=== PATIENT | female | born 1990 | race Caucasian/White ===

== ENCOUNTER 2023-10-03 22:53 | Emergency (ER) | payer OTHER ==
[~2023-10-03] VITALS: Ht 167.6 cm; Wt 95.5 kg
[2023-10-03 23:02] VITALS: BP 137/83; PULSE 85; RESP 16; TEMP 98.2
[2023-10-05 04:06] LABS: HEPATITIS A ANTIBODY IGM Negative (Negative); HEPATITIS B CORE IGM Negative (Negative); HEPATITIS C AB (EIA) Non Reactive (Non Reactive)
== END 2023-10-04 05:59 | disposition home or self-care (01) ==
LOC: EMS 22:54 → EDSEX 22:54 → EMS 10-04 05:59
DX: Z77.21 Contact with and (suspected) exposure to potentially hazardous body fluids (principal); Z88.1 Allergy status to other antibiotic agents
CPT/HCPCS: 80074; 99283

== ENCOUNTER 2024-11-05 11:09 | Inpatient (IN) | payer OTHER, MEDICAID ==
[~2024-11-05] VITALS: Ht 162.6 cm; Wt 98.3 kg
[2024-11-05 11:20] LABS: COVID AG,FIA SOURCE NASAL SWAB
[2024-11-05 11:30] LABS: BASOPHILS % (AUTO) 0.5 % (0.0-2.0); HEMATOCRIT 38.8 % (36-46); HEMOGLOBIN 13.4 g/dL (12.0-16.0); LYMPHOCYTES # (AUTO) 1.5 K/uL (1.0-4.8); LYMPHOCYTES % (AUTO) 14.6 % (22.0-44.0); MEAN CORPUSCULAR HEMOGLOBIN 28.6 pg (26.0-34.0); MEAN CORPUSCULAR HGB CONC 34.4 G/dL (31.0-37.0); MEAN CORPUSCULAR VOLUME 83 fL (80-100); MONOCYTES # (AUTO) 0.7 K/uL (0.1-1.0); MONOCYTES % (AUTO) 6.5 % (2.0-9.0); NEUTROPHILS # (AUTO) 7.9 K/uL (1.8-7.7); NEUTROPHILS % (AUTO) 75.4 % (40.0-70.0); PLATELET COUNT (AUTO) 414 K/uL (150-450); RED BLOOD CELL COUNT(AUTO) 4.67 MIL/uL (4.00-5.20); RED CELL DISTRIBUTION WIDTH 14.5 % (11.5-14.5); WHITE BLOOD COUNT (AUTO) 10.5 K/uL (4.5-11.0)
[2024-11-05 11:38] LABS: ANION GAP 8 mmol/L (8-16); CALCIUM, TOTAL 9.1 mg/dL (8.8-10.5); CARBON DIOXIDE 26 mmol/L (22-29); CHLORIDE 104 mmol/L (98-107); CREATININE 0.66 mg/dL (0.60-1.30); GLOMERULAR FILTR. RATE CALC > 60 mL/min (>60); GLUCOSE,RANDOM 94 mg/dL (70-110); POTASSIUM 3.2 mmol/L (3.5-5.1); SODIUM SERUM 138 mmol/L (136-145); UREA NITROGEN, BLOOD 6 mg/dL (7-18)
[2024-11-05 11:48] LABS: TROPONIN I-HIGH SENSITIVITY Less Than 4 ng/L (<51)
[2024-11-05 11:56] LABS: INFLUENZA TYPE A NEGATIVE FOR TYPE A (NEGATIVE); INFLUENZA TYPE B NEGATIVE FOR TYPE B (NEGATIVE); SARS-COV2 (COVID) ANTIGEN,FIA Negative (Negative)
[2024-11-05 13:43] VITALS: PULSE 89; RESP 18; O2SAT 92
[2024-11-05] MEDS: IPRATROPIUM BROMIDE 0.5 MG/2.5 ML NEB SOLUTION NEB ONE (13:43)
[2024-11-05] MEDS: ALBUTEROL SULFATE 2.5 MG/0.5 ML NEB SOLUTION NEB ONE ×2 (13:43→20:33)
[2024-11-05] MEDS ORDERED: SODIUM CHLORIDE 0.9% 100 ML ONE (13:50)
[2024-11-05] MEDS ORDERED: IOHEXOL 350 MG/ML 100 ML VIAL ONE (13:50)
[2024-11-05 13:59] VITALS: PULSE 112; RESP 20; O2SAT 91
[2024-11-05] MEDS ORDERED: PRED-554 PO (15:11)
[2024-11-05] MEDS ORDERED: ALBU18HF12 IH (15:11)
[2024-11-05] MEDS ORDERED: GUAIFDM PO (15:11)
[2024-11-05] MEDS ORDERED: ACET-2080 PO (15:11)
[2024-11-05] MEDS ORDERED: DOXY-354 PO (15:11)
[2024-11-05] MEDS: ALBUTEROL SULFATE HFA 90 MCG/PUFF 8 GM INHALER IH ONE (15:41)
[2024-11-05] MEDS: PredniSONE 20 MG TABLET PO ONE (15:42)
[2024-11-05] MEDS: DOXYCYCLINE HYCLATE 100 MG TABLET PO ONE (16:50)
[2024-11-05] MEDS ORDERED: 0.9% SODIUM CHLORIDE 5 ML NEB SOLUTION NEB ONE (20:30)
[2024-11-05 20:33] VITALS: PULSE 90; RESP 20; O2SAT 92
[2024-11-05 20:48] VITALS: PULSE 106; RESP 20; O2SAT 96
[2024-11-05] MEDS ORDERED: BISACODYL 10 MG RECTAL RECTAL SUPPOSITORY PR PRN (21:00)
[2024-11-05] MEDS: DOCUSATE SODIUM 100 MG CAPSULE PO SCH (21:00)
[2024-11-05] MEDS ORDERED: ONDANSETRON HCL 4 MG/2 ML VIAL IVP PRN (21:00)
[2024-11-05] MEDS ORDERED: HYDROCODONE/ACETAMINOPHEN 5-325 MG TABLET PO PRN (21:00)
[2024-11-05] MEDS ORDERED: MAGNESIUM HYDROXIDE SUSPENSION 30 ML UDCUP PO PRN (21:00)
[2024-11-05] MEDS ORDERED: MORPHINE SULFATE 2 MG/ML SYRINGE IVP PRN (21:00)
[2024-11-05] MEDS ORDERED: ZOLPIDEM TARTRATE 5 MG TABLET PO PRN (21:00)
[2024-11-05] MEDS: *CLINICAL-LEVOFLOXACIN IVPB DOSING CLINICAL ONE (21:06)
[2024-11-05] MEDS: GuaiFENesin SR 600 MG ER TABLET PO SCH (21:25)
[2024-11-05] MEDS: BENZONATATE 100 MG CAPSULE PO SCH (21:25)
[2024-11-05] MEDS: LEVOFLOXACIN 750 MG/D5% WATER 150 ML IV SCH (21:45)
[2024-11-05 21:53] VITALS: PULSE 106; RESP 20; O2SAT 93
[2024-11-05] MEDS: IPRATROPIUM BROMIDE 0.5 MG/2.5 ML NEB SOLUTION NEB PRN (21:53)
[2024-11-05] MEDS: ALBUTEROL SULFATE 2.5 MG/0.5 ML NEB SOLUTION NEB PRN (21:53)
[2024-11-05 22:08] VITALS: PULSE 121; RESP 20; O2SAT 96
[2024-11-05] MEDS: POTASSIUM CHLORIDE 20 MEQ ER TABLET PO ONE (22:38)
[2024-11-05] MEDS: HEPARIN SODIUM,PORCINE 5,000 UNITS/ML VIAL SQ SCH (23:26)
[2024-11-05] MEDS: MethylPREDNISolone SOD SUCC 125 MG/2 ML VIAL IVP SCH (23:29)
[2024-11-06] VITALS (14 sets, daily range): BP systolic 106–121; BP diastolic 69–85; PULSE 73–103; RESP 12–22; TEMP 98.2–99; O2SAT 92–97
[2024-11-06 00:34] LABS: APPEARANCE,URINE CLEAR (CLEAR); BILIRUBIN,URINE NEGATIVE (NEGATIVE); COLOR,URINE LIGHT YELLOW (YELLOW); GLUCOSE, URINE (UA) >=1000 mg/dL (NEGATIVE); LEUKOCYTE ESTERASE ,URINE NEGATIVE (NEGATIVE); NITRATE,URINE NEGATIVE (NEGATIVE); OCCULT BLOOD,URINE NEGATIVE (NEGATIVE); PROTEIN,URINE NEGATIVE (NEGATIVE); SPECIFIC GRAVITIY, URINE 1.014 (1.003-1.030)
[2024-11-06 00:59] LABS: RBC,URINE None Seen /HPF (0-2); WBC,URINE 0-2 /HPF (0-5)
[2024-11-06 01:00] LABS: BACTERIA,URINE None Seen /HPF (None Seen); SQUAMOUS EPITHELIAL CELL,UR Rare /LPF (None Seen)
[2024-11-06] MEDS: IPRATROPIUM BROMIDE 0.5 MG/2.5 ML NEB SOLUTION NEB SCH (02:22)
[2024-11-06] MEDS: ALBUTEROL SULFATE 2.5 MG/0.5 ML NEB SOLUTION NEB SCH (02:22)
[2024-11-06 06:51] LABS: BASOPHILS % (AUTO) 0.3 % (0.0-2.0); EOSINOPHILS % (AUTO) 0.8 % (1.0-6.0); HEMATOCRIT 31.4 % (36-46); HEMOGLOBIN 11.8 g/dL (12.0-16.0); LYMPHOCYTES # (AUTO) 0.7 K/uL (1.0-4.8); LYMPHOCYTES % (AUTO) 8.7 % (22.0-44.0); MEAN CORPUSCULAR HEMOGLOBIN 34.3 pg (26.0-34.0); MEAN CORPUSCULAR VOLUME 91 fL (80-100); MONOCYTES # (AUTO) 0.3 K/uL (0.1-1.0); NEUTROPHILS # (AUTO) 6.7 K/uL (1.8-7.7); PLATELET COUNT (AUTO) 364 K/uL (150-450); RED BLOOD CELL COUNT(AUTO) 3.45 MIL/uL (4.00-5.20); RED CELL DISTRIBUTION WIDTH 14.6 % (11.5-14.5); WHITE BLOOD COUNT (AUTO) 7.8 K/uL (4.5-11.0)
[2024-11-06 07:00] LABS: ANION GAP 8 mmol/L (8-16); CALCIUM, TOTAL 9.4 mg/dL (8.8-10.5); CARBON DIOXIDE 25 mmol/L (22-29); CHLORIDE 106 mmol/L (98-107); CREATININE 0.46 mg/dL (0.60-1.30); GLOMERULAR FILTR. RATE CALC > 60 mL/min (>60); GLUCOSE,RANDOM 149 mg/dL (70-110); POTASSIUM 4.6 mmol/L (3.5-5.1); SODIUM SERUM 139 mmol/L (136-145); UREA NITROGEN, BLOOD 9 mg/dL (7-18)
[2024-11-06 08:11] LABS: NEUTROPHILS % (AUTO) 86.2 % (40.0-70.0)
[2024-11-06] MEDS: PANTOPRAZOLE SODIUM 40 MG DR TABLET PO SCH (08:50)
[2024-11-06] MEDS ORDERED: BENZONATATE 100 MG CAPSULE PO SCH (16:00)
[2024-11-06] MEDS: ACETAMINOPHEN 325 MG TABLET PO PRN (17:48)
[2024-11-06] MEDS ORDERED: SODIUM CHLORIDE 3% 15 ML NEB SOLUTION NEB ONE (19:32)
[2024-11-06 20:16] LABS: ALLEN TEST, BLOOD GAS POS; TEMPERATURE, FAHRENHEIT, BG 98.6 FAHREN (96.0-98.6)
[2024-11-06 20:17] LABS: ABG HCO3 22.9 mmol/L (21.0-28.0); ABG METHEMOGLOBIN 0.3 % (0.0-1.5); ABG PCO2 28 mmHg (32.0-45.0); ABG PH 7.478 (7.350-7.450); SITE, BLOOD GAS RT RADIAL; SOURCE, BLOOD GAS ARTERIAL
[2024-11-06 20:19] LABS: ABG A-A DIFF O2 446.7 mmHg (10-20.0); O2 DEVICE,BLOOD GAS HIFLOW (ROOM AIR)
[2024-11-06 20:20] LABS: ABG OXYGEN SATURATION 97.2 % (94.0-98.0); ABG TOTAL HEMOGLOBIN 12.7 G/dL (12.0-16.0)
[2024-11-06 20:21] LABS: ABG OXYHEMOGLOBIN 96.9 % (94.0-98.0)
[2024-11-06] MEDS: BUDESONIDE 0.5 MG/2 ML NEB SOLUTION NEB SCH (20:27)
[2024-11-06] MEDS ORDERED: SODIUM CHLORIDE 0.9% 500 ML IV ONE (21:15)
[2024-11-06 23:47] LABS: MTB PCR w/Rif. Resistance-SPUT NOT DETECTED (Not Detectd)
[2024-11-07] VITALS (14 sets, daily range): BP systolic 104–116; BP diastolic 61–87; PULSE 74–98; RESP 16–20; TEMP 97.7–98.6; O2SAT 94–98
[2024-11-07 07:38] LABS: BASOPHILS % (AUTO) 0.1 % (0.0-2.0); EOSINOPHILS % (AUTO) 0 % (1.0-6.0); HEMATOCRIT 29.9 % (36-46); HEMOGLOBIN 12.1 g/dL (12.0-16.0); LYMPHOCYTES # (AUTO) 1.2 K/uL (1.0-4.8); LYMPHOCYTES % (AUTO) 9.2 % (22.0-44.0); MEAN CORPUSCULAR HEMOGLOBIN 38.6 pg (26.0-34.0); MEAN CORPUSCULAR VOLUME 95 fL (80-100); MONOCYTES # (AUTO) 0.5 K/uL (0.1-1.0); MONOCYTES % (AUTO) 3.8 % (2.0-9.0); NEUTROPHILS # (AUTO) 11.3 K/uL (1.8-7.7); PLATELET COUNT (AUTO) 444 K/uL (150-450); RED BLOOD CELL COUNT(AUTO) 3.15 MIL/uL (4.00-5.20); RED CELL DISTRIBUTION WIDTH 15.2 % (11.5-14.5)
[2024-11-07 07:41] LABS: ANION GAP 8 mmol/L (8-16); CALCIUM, TOTAL 9.2 mg/dL (8.8-10.5); CARBON DIOXIDE 25 mmol/L (22-29); CHLORIDE 106 mmol/L (98-107); CREATININE 0.62 mg/dL (0.60-1.30); GLOMERULAR FILTR. RATE CALC > 60 mL/min (>60); GLUCOSE,RANDOM 146 mg/dL (70-110); POTASSIUM 4.7 mmol/L (3.5-5.1); SODIUM SERUM 139 mmol/L (136-145); UREA NITROGEN, BLOOD 12 mg/dL (7-18)
[2024-11-07 07:49] LABS: MEAN CORPUSCULAR HGB CONC 36.9 G/dL (31.0-37.0); NEUTROPHILS % (AUTO) 86.9 % (40.0-70.0)
[2024-11-07 09:05] LABS: MTB PCR w/Rif. Resistance-SPUT NOT DETECTED (Not Detectd)
[2024-11-08] VITALS (13 sets, daily range): BP systolic 102–120; BP diastolic 66–80; PULSE 63–87; RESP 17–19; TEMP 97.5–98.8; O2SAT 94–97
[2024-11-08 07:05] LABS: ANION GAP 7 mmol/L (8-16); CALCIUM, TOTAL 9.5 mg/dL (8.8-10.5); CARBON DIOXIDE 26 mmol/L (22-29); CHLORIDE 105 mmol/L (98-107); CREATININE 0.61 mg/dL (0.60-1.30); GLOMERULAR FILTR. RATE CALC > 60 mL/min (>60); GLUCOSE,RANDOM 151 mg/dL (70-110); POTASSIUM 4.4 mmol/L (3.5-5.1); SODIUM SERUM 138 mmol/L (136-145); UREA NITROGEN, BLOOD 15 mg/dL (7-18)
[2024-11-08 07:12] LABS: HEMATOCRIT 33.7 % (36-46); HEMOGLOBIN 12.4 g/dL (12.0-16.0); MEAN CORPUSCULAR HEMOGLOBIN 33.5 pg (26.0-34.0); MEAN CORPUSCULAR HGB CONC 36.8 G/dL (31.0-37.0); MEAN CORPUSCULAR VOLUME 91 fL (80-100); PLATELET COUNT (AUTO) 471 K/uL (150-450); RED CELL DISTRIBUTION WIDTH 14.7 % (11.5-14.5)
[2024-11-08 08:21] LABS: BAND NEUTROPHILS % (MANUAL) 7 % (0-5); LYMPHOCYTES % (MANUAL) 14 % (22-44); METAMYELOCYTES % 1 % (0-0); MONOCYTES % (MANUAL) 1 % (2-9); RBC MORPHOLOGY COMMENT NORMAL RBC MORPH; SEGMENTED NEUTROPHILS % 77 % (40-70); TOTAL CELLS COUNTED 100
[2024-11-09] VITALS (13 sets, daily range): BP systolic 106–132; BP diastolic 69–83; PULSE 68–95; RESP 14–18; TEMP 97.7–98.6; O2SAT 93–99
[2024-11-10] VITALS (13 sets, daily range): BP systolic 110–123; BP diastolic 72–80; PULSE 71–104; RESP 14–19; TEMP 97.2–98.4; O2SAT 93–97
[2024-11-10 07:15] LABS: HEMATOCRIT 35.5 % (36-46); HEMOGLOBIN 12.8 g/dL (12.0-16.0); MEAN CORPUSCULAR HEMOGLOBIN 32.9 pg (26.0-34.0); MEAN CORPUSCULAR HGB CONC 36.1 G/dL (31.0-37.0); MEAN CORPUSCULAR VOLUME 91 fL (80-100); PLATELET COUNT (AUTO) 427 K/uL (150-450); RED CELL DISTRIBUTION WIDTH 14.6 % (11.5-14.5); WHITE BLOOD COUNT (AUTO) 13.8 K/uL (4.5-11.0)
[2024-11-10 07:21] LABS: BAND NEUTROPHILS % (MANUAL) 8 % (0-5); LYMPHOCYTES % (MANUAL) 13 % (22-44); METAMYELOCYTES % 1 % (0-0); MONOCYTES % (MANUAL) 3 % (2-9); SEGMENTED NEUTROPHILS % 75 % (40-70); TOTAL CELLS COUNTED 100
[2024-11-10 07:22] LABS: RBC MORPHOLOGY COMMENT NORMAL RBC MORPH
[2024-11-10 07:30] LABS: ANION GAP 9 mmol/L (8-16); CALCIUM, TOTAL 8.9 mg/dL (8.8-10.5); CARBON DIOXIDE 26 mmol/L (22-29); CHLORIDE 104 mmol/L (98-107); CREATININE 0.71 mg/dL (0.60-1.30); GLOMERULAR FILTR. RATE CALC > 60 mL/min (>60); GLUCOSE,RANDOM 163 mg/dL (70-110); POTASSIUM 4.2 mmol/L (3.5-5.1); SODIUM SERUM 139 mmol/L (136-145); UREA NITROGEN, BLOOD 19 mg/dL (7-18)
[2024-11-10 13:07] LABS: LEGIONELLA PNEUMO AG URINE Negative (Negative); S PNEUMO SOURCE Urine; STREP PNEUMONIAE AG URINE Negative (Negative)
[2024-11-10 21:07] LABS: MYCOPLASMA AB IGG 246 U/mL (0-99); MYCOPLASMA AB IGM 3845 U/mL (0-769)
[2024-11-11] VITALS (12 sets, daily range): BP systolic 106–133; BP diastolic 66–87; PULSE 64–88; RESP 17–19; TEMP 97.3–98.3; O2SAT 94–97
[2024-11-11] MEDS ORDERED: SODIUM CHLORIDE 0.9% 500 ML IV ONE (21:36)
[2024-11-12] VITALS (9 sets, daily range): BP systolic 106–124; BP diastolic 73–91; PULSE 65–94; RESP 18–20; TEMP 97.3–98.2; O2SAT 94–99
[2024-11-12] MEDS ORDERED: BENZ-227 PO (14:35)
[2024-11-12] MEDS ORDERED: PRED-729 PO (14:35)
[2024-11-12] MEDS ORDERED: GUAI100L96 PO (14:35)
[2024-11-12] MEDS ORDERED: FLUT1BLS19 IH (14:35)
[2024-11-12] MEDS ORDERED: LEVO750T68 PO (14:35)
[2024-11-12] MEDS ORDERED: ALBU18HF12 IH (14:35)
[2024-11-13 13:49] LABS: QUANTIFERON+, Nil Value 0.01 IU/mL; QUANTIFERON+,Mitogen Value 0.09 IU/mL; QUANTIFERON+,TB1 Antigen Value 0.02 IU/mL; QUANTIFERON+,TB2 Antigen Value 0.05 IU/mL; QUANTIFERON, TB GOLD PLUS Indeterminate (Negative)
== END 2024-11-12 18:15 | disposition home or self-care (01) | DRG 193 ==
LOC: EMS 11:10 → EDH 21:00 → 5S 22:55 → 4E 11-11 15:09
PROVIDERS: ADMIT Internal Medicine; ATTEND Internal Medicine
PROC: 5A0945A Assistance with Respiratory Ventilation, 24-96 Consecutive Hours, High Flow/Velocity Cannula (ICD-10-PCS; principal; 2024-11-06)
PROC: 5A0935A Assistance with Respiratory Ventilation, Less than 24 Consecutive Hours, High Flow/Velocity Cannula (ICD-10-PCS; 2024-11-10)
DX: J15.7 Pneumonia due to Mycoplasma pneumoniae (principal); J96.01 Acute respiratory failure with hypoxia; E66.9 Obesity, unspecified; K76.0 Fatty (change of) liver, not elsewhere classified; K44.9 Diaphragmatic hernia without obstruction or gangrene; Z20.822 Contact with and (suspected) exposure to COVID-19; E87.6 Hypokalemia; Z90.49 Acquired absence of other specified parts of digestive tract; Z88.1 Allergy status to other antibiotic agents; Z87.01 Personal history of pneumonia (recurrent); Z68.37 Body mass index [BMI] 37.0-37.9, adult
CPT/HCPCS: 36600; 71045; 71046; 71275; 80048; 81001; 82805; 84484; 84703; 85025; 85379; 86480; 86738; 87015; 87040; 87206; 87389; 87420; 87449; 87556; 87804; 87899; 93005; 93306; 94640; 99291; G0378; J1644; J1956; J2919; J3535; J7040; J7050; 36415-L1; 36415-TC; J7613